=== PATIENT | female | born 1980 | race Caucasian/White ===

== ENCOUNTER 2024-05-07 22:58 | Emergency (ER) | payer BC, MEDICAID ==
[~2024-05-07] VITALS: Ht 170.2 cm; Wt 68.0 kg
[2024-05-07 23:36] LABS: BASOPHILS # (AUTO) 0.1 K/UL (0.0-0.2); BASOPHILS % (AUTO) 0.6 % (0.0-2.0); EOSINOPHILS # (AUTO) 0.3 K/uL (0.0-0.7); HEMATOCRIT 32.1 % (31.2-41.9); HEMOGLOBIN 10.4 g/dL (10.9-14.3); LYMPHOCYTES # (AUTO) 2.4 K/uL (0.8-4.8); LYMPHOCYTES % (AUTO) 15.3 % (20.5-51.5); MEAN CORPUSCULAR HGB CONC 32 g/dL (32.3-35.6); MEAN CORPUSCULAR VOLUME 83.5 fL (75.5-95.3); MONOCYTES # (AUTO) 1.5 K/uL (0.1-1.30); MONOCYTES % (AUTO) 9.6 % (0.0-11.0); NEUTROPHILS # (AUTO) 11.3 K/uL (1.8-8.9); NEUTROPHILS % (AUTO) 72.5 % (38.5-71.5); PLATELET COUNT (AUTO) 414 K/uL (179-408); RED BLOOD CELL COUNT(AUTO) 3.84 MIL/uL (3.63-4.92); WHITE BLOOD COUNT (AUTO) 15.6 K/uL (3.8-11.8)
[2024-05-07 23:38] LABS: DIFFERENTIAL COMMENT 1
[2024-05-07 23:44] LABS: CREATININE 0.8 mg/dL (0.6-1.3); POTASSIUM 4.2 mmol/L (3.5-5.1)
[2024-05-07 23:50] LABS: ALBUMIN 3.2 g/dL (3.4-5.0)
[2024-05-08] MEDS ORDERED: QUET300T20 PO (01:21)
[2024-05-08] MEDS ORDERED: CLON2TAB11 PO (01:21)
[2024-05-08] MEDS ORDERED: ATOM40CA PO (01:21)
[2024-05-08] MEDS ORDERED: PARO40TA4 PO (01:21)
[2024-05-08] MEDS ORDERED: KETOROLAC TROMETHAMINE 30 MG INJ ONE (01:29)
[2024-05-08 01:30] LABS: *BILIRUBIN,URIN NEGATIVE (NEGATIVE); *BLOOD, URINE 1+ (NEGATIVE); *CLARITY,URINE CLEAR (CLEAR); *COLOR,URINE YELLOW (YELLOW); *KETONES,URINE NEGATIVE (NEGATIVE); *PROTEIN,URINE 1+ (NEGATIVE); *UROBILINOGEN,URINE 0.2 E.U./dl (NORMAL); LEUKOCYTE ESTERASE ,URINE NEGATIVE (NEGATIVE); NITRITE, URINE NEGATIVE (NEGATIVE); UGLUCOSE NEGATIVE (NEGATIVE)
[2024-05-08] MEDS ORDERED: HYDR-4209 PO (01:30)
[2024-05-08] MEDS ORDERED: ONDA4TAB5 PO (01:30)
[2024-05-08 01:38] LABS: *URINE HCG, QUAL NEGATIVE (NEGATIVE)
[2024-05-08] MEDS: KETOROLAC TROMETHAMINE 30 MG INJ IVP ONE (01:40)
[2024-05-08 02:04] LABS: BACTERIA,URINE FEW /HPF (NONE SEEN); SQUAMOUS EPITHELIAL CELL,UR FEW /HPF (NONE SEEN); WBC,URINE 0-3 /HPF (0-3)
[2024-05-08 03:57] VITALS: BP 130/80; TEMP 98; O2SAT 98
== END 2024-05-08 03:59 | disposition home or self-care (01) ==
LOC: ER 22:58
DX: S30.1XXA Contusion of abdominal wall, initial encounter (principal); K91.840 Postprocedural hemorrhage of a digestive system organ or structure following a digestive system procedure; R10.2 Pelvic and perineal pain; Z79.899 Other long term (current) drug therapy; Z88.0 Allergy status to penicillin; Z88.7 Allergy status to serum and vaccine; X58.XXXA Exposure to other specified factors, initial encounter; Y93.89 Activity, other specified; Y92.89 Other specified places as the place of occurrence of the external cause; Y99.8 Other external cause status
CPT/HCPCS: 36415; 83690; 84703; 85025; 85610; A4606; A4663; C1758; J1885